=== PATIENT | male | born 2000 | race Caucasian/White ===

== ENCOUNTER 2021-03-15 18:05 | Emergency (ER) | payer OTHER, SELFPAY ==
[2021-02-01 09:39] VITALS: BMI 24.2
[2021-03-15 18:06] VITALS: BP 154/79; PULSE 82; RESP 18; TEMP 37.4; O2SAT 98; BMI 27.1
[2021-03-15 18:35] LABS: Absolute Lymphocyte Count 1.54 X10^3/uL (0.83-4.51); Absolute Neutrophil Count 4.8 X10^3/uL (2.0-7.7); Basophil# 0.05 X10^3/uL; Basophil% 0.7 % (0-1); Eosinophil# 0.05 X10^3/uL; Eosinophils% 0.7 % (0-5); Hemoglobin 15.9 g/dL (13.0-16.5); Lymphocyte # 1.54 X10^3/ul (0.83-4.51); Lymphocyte % 21.2 % (19-41); Mean Corp Hgb Conc 33.1 g/dL (32-36); Mean Corpuscular Hgb 28.6 pg (27.0-32.0); Mean Corpuscular Volume 86.5 fL (80-94); Mean Platelet Vol. 9.3 fl (6.2-12.0); Monocyte# 0.76 X10^3/uL; Monocyte% 10.5 % (0-10); NRBC Flagged by Analyzer 0 % (0-5); Neutrophil # 4.83 X10^3/uL (2.7-7.7); Neutrophil % 66.5 % (47-70); Platelet Count 260 K/mm3 (150-450); RBC Distribution Width CV 13.9 % (11.6-14.6); RBC Distribution Width SD 43.8 fl (35.1-43.9); Red Blood Count 5.55 M/mm3 (4.6-6.2); White Blood Count 7.3 K/mm3 (4.4-11.0)
[2021-03-15 18:53] LABS: Anion Gap 5 (5-15); BUN 9 mg/dL (7-18); BUN/Creat Ratio 8.3 RATIO (10-20); Calcium,Total 9.3 mg/dL (8.5-10.1); Chloride 107 mmol/L (98-107); Creatinine, Serum 1.09 mg/dL (0.70-1.30); EST Glomerular Filtration Rate 92 mL/min (>60); Est Glom Filt Rate - Afr Amer 112 mL/min (>60); Estimated Creatinine Clearance 123.19 ml/min; Glucose 87 mg/dL (74-106); Potassium 3.7 mmol/L (3.5-5.1); Sodium Level 137 mmol/L (136-145)
[2021-03-15 21:35] LABS: Amphetamine Urine VISTA NEGATIVE (<1000 ng/mL); Barbiturate Urine VISTA NEGATIVE (< 200 ng/mL); Benzodiazepine Urine VISTA NEGATIVE (< 200 ng/mL); Cocaine Urine VISTA NEGATIVE (< 300 ng/mL); Ecstacy Urine VISTA NEGATIVE (< 500 ng/mL); Methadone Urine VISTA NEGATIVE (< 300 ng/mL); PCP Urine VISTA NEGATIVE (< 25 ng/mL); THC Urine VISTA POSITIVE (< 50 ng/mL); Vista UDS pH Range 6
--- NOTE | 2021-03-15 21:36 | ED.RN ---
PAGED CRISIS TO SEE THIS PT
[2021-03-15 22:54] VITALS: BP 134/87; PULSE 73; RESP 16; O2SAT 99
--- NOTE | 2021-03-15 23:03 | ED.RN ---
UPDATED PT AND FAMILY ON CURRENT STATUS OF PLACEMENT, BOTH VOICE UNDERSTANDING. FAMILY IS LEAVING TO GET PT CLOTHES AND TACO JARA, WILL RETURN.
[2021-03-16 00:29] VITALS: RESP 14
--- NOTE | 2021-03-16 01:57 | EDS_ITS ---
HPI History of Present Illness Chief Complaint: Suicidal Informant: patient Narrative Narrative: Patient is a 20-year-old previously healthy male who presents to the emergency department for suicidal ideation. He states that the he has had these thoughts before in the past. He has attempted suicide 1 and 2 years ago. He states that he was previously on psychiatric medications but came off of them over the past couple of months. He was just placed on lithium over the past month. He has had thoughts of wanting to hurt himself. He states that he does have razor blades at the house and put them up to his arm. He never actually cut himself. He called crisis who referred him to the emergency department. Patient states he has had a lot of new stressors lately. He did recently move out and got his own apartment. He denies any issues with drugs or alcohol. [facility] Medical History (Updated 03/16/21 @ 06:[address] Kenneth Neely DO) Depression Hypomanic bipolar II disorder Right ankle sprain Right foot sprain Home Medications fluoxetine 20 mg capsule 20 mg PO DAILY 02/01/21 [History Last Taken Unknown] lamotrigine 25 mg PO DAILY 03/15/21 [History Last Taken Unknown] trazodone 50 - 100 mg PO QHS PRN 03/15/21 [History Last Taken Unknown] Allergy/AdvReac Type Severity Reaction Status Date / Time No Known Allergies Allergy Verified 09/02/16 07:34 Family History (Updated 02/01/21 @ 09:15 by Whitney Sung) Other CVA (cerebral vascular accident) Cancer Dementia Diabetes Hypertension Social History Smoking Status: Never smoker ROS ROS ED Constitutional Constitutional ED: Denies chills or fever(s) ENT ENT ED: Denies rhinorrhea Cardiovascular Cardiovascular: Denies chest pain Respiratory/Chest Respiratory/Chest: Denies cough or dyspnea Gastrointestinal Gastrointestinal: Denies abdominal pain, nausea or vomiting Musculoskeletal Musculoskeletal: Denies back pain or neck pain Integumentary Denies rash Neurologic Neurologic: Denies dizziness or weakness Psychiatric Psychiatric: Reports suicidal ideation EXAM Physical Exam Const Vital Signs: 03/15/21 18:06 03/15/21 22:54 03/16/21 00:29 Temperature 99.3 F H Temperature Source Temporal Pulse Rate 82 73 Respiratory Rate 18 16 14 Blood Pressure 154/79 H 134/87 H Blood Pressure Mean 104 102 Pulse Ox 98 99 Oxygen Delivery Method Room Air Room Air 03/16/21 03:00 03/16/21 04:04 03/16/21 05:11 Temperature Temperature Source Pulse Rate 62 Respiratory Rate 14 14 14 Blood Pressure 108/61 Blood Pressure Mean 76 Pulse Ox 98 Oxygen Delivery Method Room Air Positive well nourished and well developed General Appearance ED: well developed and NAD HEENT Reports normocephalic, head/scalp atraumatic and moist mucous membranes Eyes PERRL and EOMs intact bilaterally Neck supple Resp normal respiratory effort and clear to auscultation bilaterally Auscultation: Negative for rales, rhonchi or wheezes Cardio regular rate, regular rhythm and no murmurs Extremity normal to inspection General Extremety ED: Negative for edema General Extremity: Negative for edema Neuro no sensory deficits noted Sensorium / Orientation: alert Motor Exam: strength 5/5 throughout Psych mental status grossly normal Skin no rashes or lesions noted MDM MDM MDM Narrative Medical decision making narrative: Patient presents to the emergency department for suicidal ideation. He has been calm and cooperative throughout emergency department stay. Basic lab work obtained. This did not reveal any significant acute abnormality. His tox screen was positive for cannabinoids. Alcohol level is negative. Patient is medically cleared for psychiatric evaluation. Crisis did evaluate the patient and they are planning on placing him into acute psychiatric care facility. Patient's lithium level is low. Patient was accepted at [facility]. He has remained stable throughout ED stay. We will transfer him at this time. Lab Data Labs: Laboratory Results - last 24 hr 03/15/21 03/15/21 03/15/21 18:25 18:25 18:25 WBC 7.3 RBC 5.55 Hgb 15.9 Hct 48.0 MCV 86.5 MCH 28.6 MCHC 33.1 RDW Std Deviation 43.8 RDW Coeff of Kayode 13.9 Plt Count 260 MPV 9.3 Immature Gran % (Auto) 0.400 Neut % (Auto) 66.5 Lymph % (Auto) 21.2 [place] % (Auto) 10.5 H Eos % (Auto) 0.7 Baso % (Auto) 0.7 Absolute Neuts (auto) 4.8 Absolute Lymphs (auto) 1.54 Nucleated RBC % 0 Sodium 137 Potassium 3.7 Chloride 107 Carbon Dioxide 25.0 Anion Gap 5 BUN 9 Creatinine 1.09 Estim Creat Clear Calc 123.19 Est GFR (MDRD) Af Amer 112 Est GFR (MDRD) Non-Af 92 BUN/Creatinine Ratio 8.3 L Glucose 87 Calcium 9.3 Urine Opiates Screen Urine Methadone Screen Ur Barbiturates Screen Ur Phencyclidine Scrn Ur Amphetamines Screen U Methamphetamin-MDMA U Benzodiazepines Scrn Manuel Garcia Ii Urine Cocaine Screen U Cannabinoids Screen Ur Drug Screen Comment Ethyl Alcohol 4.0 03/15/21 03/15/21 18:25 19:58 WBC RBC Hgb Hct MCV MCH MCHC RDW Std Deviation RDW Coeff of Kayode Plt Count MPV Immature Gran % (Auto) Neut % (Auto) Lymph % (Auto) [place] % (Auto) Eos % (Auto) Baso % (Auto) Absolute Neuts (auto) Absolute Lymphs (auto) Nucleated RBC % Sodium Potassium Chloride Carbon Dioxide Anion Gap BUN Creatinine Estim Creat Clear Calc Est GFR (MDRD) Af Amer Est GFR (MDRD) Non-Af BUN/Creatinine Ratio Glucose Calcium Urine Opiates Screen NEGATIVE Urine Methadone Screen NEGATIVE Ur Barbiturates Screen NEGATIVE Ur Phencyclidine Scrn NEGATIVE Ur Amphetamines Screen NEGATIVE U Methamphetamin-MDMA NEGATIVE U Benzodiazepines Scrn NEGATIVE Manuel Garcia Ii < 0.20 L Urine Cocaine Screen NEGATIVE U Cannabinoids Screen POSITIVE H Ur Drug Screen Comment Ethyl Alcohol Discharge Plan Triage Chief Complaint: Suicidal ED Provider: Kenneth Neely Dx/Rx/DC Orders Clinical Impression: Suicidal ideations Prescriptions: No Action fluoxetine 20 mg capsule 20 mg PO DAILY RF: 0 trazodone 50 mg tablet 50 - 100 mg PO QHS PRN (Reason: Insomnia) RF: 0 lamotrigine 25 mg tablet 25 mg PO DAILY RF: 0 Primary Care Provider: Care Physician,No Primary Referrals: Care Physician,No Primary [Primary Care Provider] - Disposition Disposition: Psychiatric Hospital or Unit
[2021-03-16 02:33] LABS: Lithium < 0.20 mmol/L (0.60-1.20)
[2021-03-16 03:00] VITALS: RESP 14
[2021-03-16 04:04] VITALS: BP 108/61; PULSE 62; RESP 14; O2SAT 98
[2021-03-16 05:11] VITALS: RESP 14
[2021-03-16 06:32] VITALS: RESP 16
--- NOTE | 2021-03-16 06:32 | ED.RN ---
SECOND ATTEMPT TO CALL REPORT TO [facility]. RN ASKED IF THIS RN COULD CALL BACK IN 5 MINUTES.
== END 2021-03-16 06:37 ==
PROVIDERS: Emergency Provider Emergency Medicine
DX: R45.851 Suicidal ideations (principal); F31.81 Bipolar II disorder; F12.90 Cannabis use, unspecified, uncomplicated; Z79.899 Other long term (current) drug therapy
CPT/HCPCS: 80048; 80178; 80307; 82077; 85025; 99285

== ENCOUNTER 2023-08-01 07:25 | Emergency (ER) | payer OTHER, SELFPAY ==
[2023-08-01 07:25] VITALS: BP 127/69; PULSE 59; RESP 16; TEMP 36.3; O2SAT 99; BMI 26.3
--- NOTE | 2023-08-01 07:46 | CT_ITS ---
STUDY: CT ABDOMEN AND PELVIS WITH CONTRAST REASON FOR EXAM: Male, 22 years old. Epigastric pain. RADIATION DOSAGE (If Supplied By Facility): CTDIvol = ( 11.00 ) mGy, DLP = ( 841.46 ) mGycm TECHNIQUE: Transaxial images were obtained from the dome of the diaphragm to the symphysis pubis without oral contrast. IV 100mL Isovue-300 was administered. Sagittal and coronal images were reconstructed. Individualized dose optimization techniques were used for this CT. COMPARISON: None. FINDINGS: The visualized lung bases are unremarkable. The visualized portions of the heart are within normal limits. Normal liver. Normal gallbladder and extrahepatic biliary system. Normal spleen. Normal pancreas. Normal bilateral adrenal glands. Normal right kidney. Normal left kidney. Normal visualized stomach. Normal small intestine. Normal colon. The appendix is visualized and appears normal. Small lymph nodes are seen within the mesentery in the right lower quadrant suggests of mesenteric adenitis. Normal abdominal aorta. Normal inferior vena cava. Normal retroperitoneum. Normal urinary bladder. Normal abdominal wall. Normal osseous structures. CT/Abdomen/Pelvis W IV Cont ONLY IMPRESSION: Normal enhanced CT of the abdomen and pelvis. Electronically Signed: Fortunato Gonzalez MD at 9:06 EST ,
--- NOTE | 2023-08-01 07:47 | EDS_ITS ---
HPI HPI - GI History of Present Illness Chief Complaint: Abd Pain Narrative Narrative: 22-year-old male past medical history of depression presents with his mother because of abdominal pain that began around 830 yesterday morning, almost 23 hours ago. He states throughout the day it progressed. Complains of more left- sided abdominal pain that is crampy and pulsating. He was nauseated but did not vomit. He later developed diarrhea and loose stool. Although he is lactose intolerant and had a small amount of dairy, it was not enough to cause his symptoms. He also complains of a scratchy throat that sore with swallowing. No fevers or chills. No dysuria or hematuria. No exacerbating or alleviating factors to his abdominal pain. However, he did state that bearing down might make it feel better. [facility] Medical History Depression Hypomanic bipolar II disorder Right ankle sprain Right foot sprain Home Medications fluoxetine 20 mg capsule 20 mg PO DAILY 02/01/21 [History Last Taken Unknown] lamotrigine 25 mg tablet 25 mg PO DAILY 03/15/21 [History Last Taken Unknown] trazodone 50 mg tablet 50 - 100 mg PO QHS PRN Insomnia 03/15/21 [History Last Taken Unknown] Allergy/AdvReac Type Severity Reaction Status Date / Time No Known Allergies Allergy Verified 11/04/22 15:37 Family History Other CVA (cerebral vascular accident) Cancer Dementia Diabetes Hypertension Social History Smoking Status: Never smoker ROS ROS ED ROS Narrative Constitutional: No fever, no chills. HEENT: No sore throat. No neck pain. No loss of vision. No rhinorrhea. Itchy, sore throat Cardiovascular: No chest pain. No palpitations. No pedal edema. Respiratory: No cough, no shortness of breath. Abdominal: Upper quadrant abdominal pain. Positive nausea. No vomiting. Positive diarrhea, 3 episodes to 4 episodes in last 24 hours. Genitourinary: No dysuria. No hematuria. Musculoskeletal: No myalgias. No arthralgias. Neurologic: No headaches. No dizziness. No lightheadedness. Skin: No rash. No change in color. Psychiatric: No depression. No anxiety. EXAM Physical Exam Narrative Exam Narrative: Afebrile. Vital signs noted. HEENT: Normocephalic. Atraumatic. PERRL, EOMI. Neck soft and supple. No point tenderness or step off. Weight patent. No drooling or trismus. No tonsillar exudate. Cardiovascular: Regular rate and rhythm. No murmurs, rubs, or gallops appreciated. Respiratory: No tachypnea. Lungs clear to auscultation bilaterally. Gastrointestinal: Abdomen soft, tenderness to palpation left upper quadrant with normoactive bowel sounds. No rebound or guarding. Neurological: Awake. Alert. Nonfocal, nonlateralizing. Skin: No rash. Normal color. No pallor. Musculoskeletal: No pedal edema. Full range of motion extremities. Const Vital Signs: 08/01/23 07:25 Temperature 97.3 F L Temperature Source Temporal Pulse Rate 59 L Respiratory Rate 16 Blood Pressure 127/69 H Blood Pressure Mean 88 Pulse Ox 99 Oxygen Delivery Method Room Air MDM MDM MDM Narrative Medical decision making narrative: Regarding his sore throat, he may have more of a viral URI versus strep. Rapid strep will be obtained. His main concern more this is abdominal pain. He has not really had any past medical history, no past surgical history to his abdomen so I have low suspicion for obstruction. In the differential also is diarrhea from lactose intolerance or viral URI/gastroenteritis. He may have colitis, or new onset Crohn's or ulcerative colitis. Screening labs will be obtained in the form of CBC, CMP, and lipase. I will also obtain a UA and CT imaging with IV contrast. I reviewed his laboratory work and he has a normal white count of 7.7, hemoglobin normal at 15.9, hematocrit 48.6, platelet count normal at 207. Electrolyte panel is grossly unremarkable except for a chloride of 111 which I think is nonspecific, normal BUN of 14 with creatinine normal at 0.79. No evidence of dehydration. Glucose appropriately elevated at 97 with an anion gap low at 4. His LFTs are grossly unremarkable with an AST of 19 and ALT of 21. Lipase normal at 21. Repeat examination at approximately 8:55 AM shows him resting comfortably on the cot, stating that his pain has improved. He has not had an episode of diarrhea here in the emergency department. I reviewed the CT report which shows normal appendix. There may be enlarged lymph nodes consis tent with mesenteric adenitis. There is no evidence of obstruction. At this point in time, I do not feel that UA is mandatory for his continued workup. There is no evidence of kidney stone or obstructive uropathy. He was referred to a primary care provider. I feel he can be discharged to follow-up. Return instructions to the emergency department were reviewed. Patient and mother agreeable to the plan. Disposition is discharged home in stable condition. History & Record Review Discussion w/independent historian: Patient and Family (Mother) Additional record(s) reviewed:: Prior ED visit (NONcontributory to current chief complaint.) Lab Data Attestation: I reviewed the patient's lab results. Labs: Laboratory Results - last 24 hr 08/01/23 05:06 WBC 7.7 RBC 5.50 Hgb 15.9 Hct 48.6 MCV 88.4 MCH 28.9 MCHC 32.7 RDW Std Deviation 43.9 RDW Coeff of Kayode 13.5 Plt Count 207 MPV 9.5 Immature Gran % (Auto) 0.300 Neut % (Auto) 60.8 Lymph % (Auto) 27.8 [place] % (Auto) 7.8 Eos % (Auto) 2.8 Baso % (Auto) 0.5 Absolute Neuts (auto) 4.7 Absolute Lymphs (auto) 2.15 Nucleated RBC % 0 Sodium 137 Potassium 4.7 Chloride 111 H Carbon Dioxide 22.0 Anion Gap 4 L BUN 14 Creatinine 0.79 Estim Creat Clear Calc 167.16 Est GFR (MDRD) Af Amer 158 Est GFR (MDRD) Non-Af 131 BUN/Creatinine Ratio 17.7 Glucose 97 Calcium 8.8 Total Bilirubin 0.30 AST 19 ALT 21 Alkaline Phosphatase 69 Total Protein 7.1 Albumin 3.6 Globulin 3.5 Albumin/Globulin Ratio 1.0 Lipase 21 Radiography Diagnostic Testing: Clinical Impression(s) from Imaging Studies Abdomen/Pelvis CT 08/01/23 07:46 IMPRESSION: Normal enhanced CT of the abdomen and pelvis. Electronically Signed: Fortunato Gonzalez MD at 9:06 EST , Discharge Plan Triage Chief Complaint: Abd Pain ED Provider: Jan Ham Dx/Rx/DC Orders Clinical Impression: Diarrhea, Mesenteric adenitis, Abdominal pain Instructions: ED Diarrhea, Unknown Cause, ED Abdominal Pain Unkn Cause Male..., ED Adenitis, Mesenteric Prescriptions: No Action fluoxetine 20 mg capsule 20 mg PO DAILY Patient Comments: take 1 capsule by mouth once daily trazodone 50 mg tablet 50 - 100 mg PO QHS PRN (Reason: Insomnia) Patient Comments: take 1 to 2 tablets by mouth BEFORE BEDTIME NEEDED FOR SLEEP lamotrigine 25 mg tablet 25 mg PO DAILY Primary Care Provider: Care Physician,No Primary Referrals: Bobby Borrego MD [Med Staff - Active Staff] - As soon as possible Care Physician,No Primary [Primary Care Provider] - Disposition Disposition: Home, Self Care
[2023-08-01 08:23] LABS: Absolute Lymphocyte Count 2.15 X10^3/uL (0.83-4.51); Absolute Neutrophil Count 4.7 X10^3/uL (2.0-7.7); Basophil# 0.04 X10^3/uL; Basophil% 0.5 % (0-1); Eosinophil# 0.22 X10^3/uL; Eosinophils% 2.8 % (0-5); Hematocrit 48.6 % (40-54); Hemoglobin 15.9 g/dL (13.0-16.5); Lymphocyte # 2.15 X10^3/ul (0.83-4.51); Lymphocyte % 27.8 % (19-41); Mean Corp Hgb Conc 32.7 g/dL (32-36); Mean Corpuscular Hgb 28.9 pg (27.0-32.0); Mean Corpuscular Volume 88.4 fL (80-94); Mean Platelet Vol. 9.5 fl (6.2-12.0); Monocyte% 7.8 % (0-10); NRBC Flagged by Analyzer 0 % (0-5); Neutrophil # 4.69 X10^3/uL (2.7-7.7); Neutrophil % 60.8 % (47-70); Platelet Count 207 K/mm3 (150-450); RBC Distribution Width CV 13.5 % (11.6-14.6); RBC Distribution Width SD 43.9 fl (35.1-43.9); White Blood Count 7.7 K/mm3 (4.4-11.0)
[2023-08-01 08:27] LABS: AST(SGOT) 19 U/L (15-37); Alanine Aminotransfer ALT/SGPT 21 U/L (16-61); Albumin, Serum 3.6 g/dL (3.2-5.0); Alkaline Phosphatase 69 U/L (45-117); Anion Gap 4 (5-15); BUN 14 mg/dL (7-18); BUN/Creat Ratio 17.7 RATIO (10-20); Calcium,Total 8.8 mg/dL (8.5-10.1); Chloride 111 mmol/L (98-107); Creatinine, Serum 0.79 mg/dL (0.70-1.30); EST Glomerular Filtration Rate 131 mL/min (>60); Est Glom Filt Rate - Afr Amer 158 mL/min (>60); Estimated Creatinine Clearance 167.16 ml/min; Globulin 3.5 g/dL (2.2-4.2); Glucose 97 mg/dL (74-106); Lipase 21 U/L (13-75); Potassium 4.7 mmol/L (3.5-5.1); Protein, Total 7.1 g/dL (6.4-8.2); Sodium Level 137 mmol/L (136-145)
[2023-08-01] MEDS: Dicyclomine 10 MG Capsule 20 MG PO (08:35)
[2023-08-01] MEDS: 0.9% Normal Saline (1000mL) 1,000 ML 1000 ML IV (08:35)
== END 2023-08-01 09:21 | disposition home or self-care (01) ==
PROVIDERS: Emergency Provider Emergency Medicine; Visit Provider Emergency Medicine
DX: R10.9 Unspecified abdominal pain (principal); F31.81 Bipolar II disorder; E73.9 Lactose intolerance, unspecified; R19.7 Diarrhea, unspecified; I88.0 Nonspecific mesenteric lymphadenitis; Z79.899 Other long term (current) drug therapy
CPT/HCPCS: 74177; 80053; 83690; 85025; 87880; 96360; 99283; Q9967; A4216

== ENCOUNTER 2023-10-27 17:24 | Emergency (ER) | payer OTHER, SELFPAY ==
[2023-10-27 17:25] VITALS: BP 121/76; PULSE 54; RESP 14; TEMP 36.1; O2SAT 99
--- OUTSIDE RECORDS SUMMARY | 2023-10-27 19:51 | XMS RPT_ITS | CCD ---
Author Name Unknown Address [address] [place] [address] [address] [place] [address] Organization [facility] Care Team Providers Care Office Rental Clerk Name Role Phone Leana Vines APRN.CNP Primary Care Provider Medications Completed/Discontinued Medications Medication Drug Class(es) Dates Sig (Normalized) Sig (Original) adapalene 0.001 mg/mg / benzoyl peroxide 0.025 mg/mg topical gel (3 sources) Retinoid Start: 10-19-2018 adapalene-benzoyl peroxide (EPIDUO) 0.1-2.5 % glwp Indications: Acne vulgaris Applied to the face as directed daily at bedtime 1 Bottle 0 10/19/2018 Active Problems Active Problems Problem Classification Problem Date Documented Da te Episodic/Chronic Anxiety disorders (3 sources) Anxiety state; Translations: [Generalized anxiety disorder] Onset: 04-14-2022 04-14-2022 Chronic Mood disorders (6 sources) Moderate major depression, single episode; Translations: [Major depressive disorder, single episode, moderate] Onset: 11-09-2018 11-09-2018 Chronic Past or Other Problems Problem Classification Problem Date Documented Da te Episodic/Chronic Other skin disorders (3 sources) Acne vulgaris; Translations: [Acne vulgaris] Onset: 11-09-2018 11-09-2018 Episodic Results Test Name Value Interpretation Reference Range Facil ity Encounters Encounter Date Encounter Type Care Provider Facility Start: 05-17-2022 Telephone encounter Reza ng MD Work Phone: [facility] Procedures Date Procedure Procedure Detail Performing Clinician Start: 10-02-2018 Adult depression screening assessment Leana Vines APRN.CNP Work Phone: Plan of Treatment Date Care Activity Detail Author Start: 04-17-2024 Urine microalbumin profile DTA P,TDAP,TD (7 - Td or Tdap) [facility] Start: 04-14-2023 COVID-19 VACCINE (3 - Booster for Moderna series) COVID-19 VACCINE (3 - Booster for Moderna series) [facility] Immunizations Immunization Date Immunization Notes Care Provider Lata lopes 05-06-2020 influenza, injectabl e, quadrivalent, contains preservative Leana Jasmyn CONTROL ANALYST.[facility] Work Phone: [facility] 05-06-2020 meningococcal oligosaccharide (groups A, C, Y and W-135) diphtheria toxoid conjugate vaccine (MCV4O) Leana Jasmyn CONTROL ANALYST.FINANCE CLERK Work Phone: [facility] 05-08-2015 Human Papillomavirus 9-valent vaccine Leana Jasmyn CONTROL ANALYST.FINANCE CLERK Work Phone: [facility] 05-08-2015 influenza, injectabl e, quadrivalent, contains preservative Leana Jasmyn CONTROL ANALYST.FINANCE CLERK Work Phone: [facility] 07-15-2014 human papilloma viru s vaccine, quadrivalent Leana Jasmyn CONTROL ANALYST.FINANCE CLERK Work Phone: [facility] 04-17-2014 human papilloma viru s vaccine, quadrivalent Leana Jasmyn CONTROL ANALYST.FINANCE CLERK Work Phone: [facility] 04-17-2014 meningococcal polysaccharide (groups A, C, Y and W-135) diphtheria toxoid conjugate vaccine (MCV4P) Leana Jasmyn CONTROL ANALYST.FINANCE CLERK Work Phone: [facility] 04-17-2014 tetanus toxoid, redu sanam diphtheria toxoid, and acellular pertussis vaccine, adsorbed Leana Jasmyn CONTROL ANALYST.FINANCE CLERK Work Phone: [facility] 12-21-2006 diphtheria, tetanus toxoids and acellular pertussis vaccine Leana Jasmyn CONTROL ANALYST.FINANCE CLERK Work Phone: [facility] Work Phone: 12-21-2006 measles, mumps, rube lla, and varicella virus vaccine Leana Jasmyn CONTROL ANALYST.FINANCE CLERK Work Phone: [facility] Work Phone: 12-21-2006 poliovirus vaccine, inactivated Leana Jasmyn CONTROL ANALYST.[facility] Work Phone: [facility] Work Phone: 06-27-2003 diphtheria, tetanus toxoids and acellular pertussis vaccine Leana Jasmyn CONTROL ANALYST.[facility] Work Phone: [facility] Work Phone: 06-27-2003 haemophilus influenz ae type b vaccine, HbOC conjugate Leana Jasmyn CONTROL ANALYST.[facility] Work Phone: [facility] Work Phone: 06-27-2003 varicella virus vaccine Cherelle billy Jasmyn CONTROL ANALYST.[facility] Work Phone: [facility] Work Phone: 11-25-2002 measles, mumps and rubella virus vaccine Leana Jasmyn CONTROL ANALYST.[facility] Work Phone: [facility] Work Phone: 11-25-2002 pneumococcal conjuga te vaccine, 7 valent Leana Jasmyn CONTROL ANALYST.[facility] Work Phone: [facility] Work Phone: 09-05-2002 hepatitis B vaccine, pediatric or pediatric/adolescent dosage Leana Jasmyn CONTROL ANALYST.[facility] Work Phone: [facility] Work Phone: 09-05-2002 pneumococcal conjuga te vaccine, 7 valent Leana Jasmyn CONTROL ANALYST.[facility] Work Phone: [facility] Work Phone: 05-24-2002 diphtheria, tetanus toxoids and acellular pertussis vaccine Leana Jasmyn CONTROL ANALYST.[facility] Work Phone: [facility] Work Phone: 05-24-2002 haemophilus influenz ae type b vaccine, HbOC conjugate Leana Jasmyn CONTROL ANALYST.FINANCE CLERK Work Phone: [facility] Work Phone: 05-24-2002 pneumococcal conjuga te vaccine, 7 valent Leana Jasmyn CONTROL ANALYST.[facility] Work Phone: [facility] Work Phone: 05-24-2002 poliovirus vaccine, inactivated Leana Jasmyn CONTROL ANALYST.[facility] Work Phone: [facility] Work Phone: 03-26-2002 diphtheria, tetanus toxoids and acellular pertussis vaccine Leana Jasmyn CONTROL ANALYST.[facility] Work Phone: [facility] Work Phone: 03-26-2002 haemophilus influenz ae type b vaccine, HbOC conjugate Leana Jasmyn CONTROL ANALYST.[facility] Work Phone: [facility] Work Phone: 03-26-2002 poliovirus vaccine, inactivated Leana Jasmyn CONTROL ANALYST.[facility] Work Phone: [facility] Work Phone: 01-22-2002 diphtheria, tetanus toxoids and acellular pertussis vaccine Leana Jasmyn CONTROL ANALYST.[facility] Work Phone: [facility] Work Phone: 01-22-2002 haemophilus influenz ae type b vaccine, HbOC conjugate Leana Jasmyn CONTROL ANALYST.[facility] Work Phone: [facility] Work Phone: 01-22-2002 pneumococcal conjuga te vaccine, 7 valent Leana Jasmyn CONTROL ANALYST.[facility] Work Phone: [facility] Work Phone: 01-22-2002 poliovirus vaccine, inactivated Leana Jasmyn CONTROL ANALYST.[facility] Work Phone: [facility] Work Phone: 2001 hepatitis B vaccine, pediatric or pediatric/adolescent dosage Leana Jasmyn CONTROL ANALYST.[facility] Work Phone: [facility] Work Phone: 2001 hepatitis B vaccine, pediatric or pediatric/adolescent dosage Leana Vines APRN.[facility] Work Phone: [facility] Work Phone: Payers Date Payer Category Payer Unknown [facility] CE PLAN [place] [employer] [id number] 2021-Present [address] [place] [address] PPO [id number] Social History Date Type Detail Facility Start: 04-14-2022 Tobacco smoking stat [facility] Smokes tobacco daily [facility] Start: 04-14-2022 Tobacco use and exposure Smoke less tobacco non-user [facility] Start: 04-14-2022 Alcohol intake Not Asked [facility] Start: 04-14-[address] [facility] Start: [facility] Sex Assigned At Not on file [facility] Start: 04-03-2022 End: 04-13-2022 Exposure to SARS-CoV-2 (event) Yes [facility] Note 05-18-2022 Telephone Encounter - Diane Wilson RN - 05/18/2022 4:03 PM EDTTelephone Encounter - Karma Durand Ma - 05/17/2022 4:33 PM EDTTelephone Encounter - Karma Durand Ma - 05/17/2022 1:22 PM EDT Note Date & Type Note Facility 05-18-2022 Miscellaneous Notes Formattin g of this note might be different from the original. Patient did not return call and did not show for appt scheduled for today Diane Wilson RN Message left to call the office Karma Durand Ma Attempted to contact patient again to call the office. Will try one more time later. Karma Durand Ma Message left to call the office. Patient has an appointment tomorrow (05/18) with Dr. Mcclure. Patient has not seen Dr. Mcclure in 3 years and has previously seen a new provider at the beginning of April. This appointment is for a follow up for medication and patient needs to see his new provider for this follow up and any further appointments. Karma Durand Ma documented in this encounter [facility] Note 04-21-2022 Telephone Encounter - Oralia Painter MA - 04/21/2022 4:22 PM EDTTelephone Encounter - Oralia Painter MA - 04/21/2022 4:21 PM EDT Note Date & Type Note Facility 04-21-2022 Miscellaneous Notes Formattin g of this note might be different from the original. Called pt left VM with results Merle Estevezally signed by Oralia Painter MA at 04/21/2022 4:24 PM EDT ----- Message from Leana Vines APRN.FINANCE CLERK sent at 04/18/2022 9:25 PM EDT ----- Hep C and HIV negative documented in this encounter [facility] Note 04-14-2022 Telephone Encounter - Oralia Painter MA - 04/14/2022 4:54 PM EDTTelephone Encounter - Oralia Painter MA - 04/14/2022 4:53 PM EDT Note Date & Type Note Facility 04-14-2022 Miscellaneous Notes Formattin g of this note might be different from the original. Called pt left MV with results and for him to call the office back with questions Oralia Painter MA ----- Message from Leana Vines APRN.FINANCE CLERK sent at 04/14/2022 2:19 PM EDT ----- CMP, CBC, tsh, and lipids are all good. documented in this encounter [facility] Progress note 04-14-2022 Note Date & Type Note Facility 04-14-2022 Note HNO ID: [id number] Author: Leana Vines APRN.FINANCE CLERK Service: ? Author Type: Nurse Practitioner Type: Progress Notes Filed: 04/14/2022 12:09 PM Note Text: This note was created using [employer]. Subjective Antwon Ernst is a 21 year old male here today to establish care for acute concerns for depression and anxiety. Previous PCP DR Mcclure who was his peditrician. I reviewed her past medical, surgical, social, and family histories today and updated chart. Allergies, chronic medications, and supplements were also reviewed and her list is now up to date. Anxiety and depression: reports being dx at age 18. Reports he was medicated and was on lexapro, zoloft and prozac. He reports one medication made it worse and one made him feel sick. He reports he did best on prozac. States he felt better and he never followed up with doctor so he just stopped. Reports he has been off for less than a year. Reports also being on Lamictal in the past but had bad reaction that caused him to be hospitalized. Occasional thoughts of suicide. Denies plan. Reports he will just break down crying or will smoke marijuana to help his depression and panic attacks. Reports hx of attempted suicide. Reports 3, reports he just tried hurting himself, once with pills and a second time he was going to shoot him self but people came home and stopped him from doing it. Reports attempts of suicide were prior to 18 yo and before he came out as aly. Reports he just broke up with is SO this week. Reports they are just friends and he is still supportive of him. Reports panic attacks 3-4x/wk. Reports usually occur while at work or when driving on his way home. Denies having a good support system. Reports he hates talking to his family about his problems. Reports he has an appt next month at [facility] on may 11. Reports his mom made him make appt. Reports his father committed suicide when he was 9 yo. Reports he has been counseling since then. Reports he is going on a cruise on 04/20/22. Reports he had COVID a week and a half ago. Reports he needs released to be able to go on cruise. Reports symptoms started 03/28/22 and tested positive 03/29/22. Preventative: he smokes marijuana daily to every other day. He reports occasional alcholol. He reports vaping daily. He does not exercise but has active job. ALLERGIES No Known Allergies Current Outpatient Medications Medication Sig Dispense Refill escitalopram oxalate (LEXAPRO) 20 mg tablet Take 1 tablet by mouth once daily. 30 tablet 11 adapalene-benzoyl peroxide (EPIDUO) 0.1-2.5 % glwp Applied to the face as directed daily at bedtime 1 Bottle 0 No current facility-administered medications for this visit. ACTIVE PROBLEM LIST Moderate Major Depression, Single Episode (Hcc) Acne Vulgaris PAST MEDICAL HISTORY Diagnosis Date Anxiety state Depression NEGATIVE MEDICAL HISTORY 12/28/2007 Normal color vision PAST SURGICAL HISTORY Procedure Laterality Date CIRCUMCISION CARE @ Social History Tobacco Use Smoking status: Every Day Smokeless tobacco: Never Tobacco comments: vapes Family History Problem Relation Age of Onset Accidental Father Diabetes Maternal Grandfather Hypertension Maternal Grandfather Diabetes Other PATERNAL SIDE other (HEART DISEASE) Other PATERNAL SIDE Cancer Other MGGM Feeling nervous, anxious, or on edge 3 Nearly every day Not being able to stop or control worrying 2 Over half the days Worrying too much about different things 3 Nearly every day Trouble relaxing 3 Nearly every day Being so restless that it's hard to sit still 2 Over half the days Being easily annoyed or irritable 2 Over half the days Feeling afraid as if something awful might happen 3 Nearly every day KYLIE-7 Anxiety Score 18 If you checked off any problems, how difficult have these problems made it for you to do your work, take care of things at home, or get along with other people? Very difficult THE LAST 2 WEEKS, HAVE YOU BEEN BOTHERED BY ANY OF THE FOLLOWING? - Little interest or pleasure in doing things 2 MORE THAN HALF THE DAYS Feeling down, depressed, or hopeless 3 Trouble falling or staying asleep, or sleeping too much 3 Feeling tired or having little energy 3 Poor appetite or overeating 2 Feeling bad yourself-you are a failure or have let yourself or others 3 Trouble concentrating, like reading the paper or watching TV 2 Moving/speaking slowly (others notice) OR being more fidgety/restless 2 Thoughts that you would be better off or of hurting yourself 3 PHQ TOTAL SCORE = 23 PHQ problems effect on difficulty of work, home, and social activity: 3 - VERY DIFFICULT . Review of Systems Constitutional: Negative for activity change, appetite change, chills, fatigue, fever and unexpected weight change. HENT: Negative for congestion. Respiratory: Negative for cough, shortness of breath and w (more content not included)... [facility] Summary Purpose Family History No Family History Records FoundNo Family History Records FoundNo Family History Records Found Advance Directives No Advanced Directives Records FoundNo Advanced Directives Records FoundNo Advanced Directives Records Found Additional Source Comments (unrecognized sect ion and content) No Status Records FoundNo Status Records FoundNo Status Records Found INFORMATION SOURCE (unrecogn ized section and content) DATE CREATED AUTHOR AUTHOR'S ORGANIZ ATION 04/22/2022 [facility] DATE CREATED AUTHOR AUTHOR'S ORGANIZ ATION 05/19/2022 [facility] Source Comments (unrecognize d section and content) In the event this informatio n is protected by the Federal Confidentiality of Alcohol and Drug Abuse Patient Records regulations: The Federal rules restrict any use of the information to criminally investigate or prosecute any alcohol or drug abuse patient.[facility] the event this information is protected by the Federal Confidentiality of Alcohol and Drug Abuse Patient Records regulations: The Federal rules restrict any use of the information to criminally investigate or prosecute any alcohol or drug abuse patient.[facility] the event this information is protected by the Federal Confidentiality of Alcohol and Drug Abuse Patient Records regulations: The Federal rules restrict any use of the information to criminally investigate or prosecute any alcohol or drug abuse patient.[facility] Reason for Visit (unrecogniz ed section and content) Reason Comments Appointment Care Teams (unrecognized sec tion and content) Office Rental Clerk Relationship Specialty Start Date End Date Lenaa Vines, CONTROL ANALYST.FINANCE CLERK [address] [place] [address] PCP - General Internal Medicine 04/14/22 FOR RECORDS PERTAINING TO PATIENTS WHO ARE OR HAVE BEEN ENROLLED IN A CHEMICAL DEPENDENCY/SUBSTANCEABUSE PROGRAM, SOME INFORMATION MAY BE OMITTED. This clinical summary was aggregated from multiple sources. Caution should be exercised in using it in the provision of clinical care. This summary normalizes information from multiple sources, and as a consequence, information in this document may materially change the coding, format and clinical context of patient data. In addition, data may be omitted in some cases. CLINICAL DECISIONS SHOULD BE BASED ON THE PRIMARY CLINICAL RECORDS. [facility]. provides no warranty or guarantee of the accuracy or completeness of information in this document.
== END 2023-10-27 18:30 | disposition left against medical advice (07) ==
LOC: ED 19:16
DX: R10.9 Unspecified abdominal pain (principal)
CPT/HCPCS: 99282

== ENCOUNTER 2024-10-14 04:48 | Emergency (ER) | payer OTHER, SELFPAY ==
[2024-10-14 04:49] VITALS: BP 146/95; PULSE 62; RESP 18; TEMP 36.6; O2SAT 100; BMI 21.7
--- NOTE | 2024-10-14 06:00 | EDS_ITS ---
HPI History of Present Illness Chief Complaint: Dental Informant: patient Narrative Narrative: Left upper dental pain last couple days. No hot cold sensitivities. No fevers. He states walking the COVID we had clenching of his teeth when pain started. Went away but came back. He went to express care earlier today was told use ibuprofen he took it labeled sleep woke up pain again took ibuprofen no relief. He follows [facility]. History of wisdom tooth extraction along with first molar extractions due to impaction from wisdom tooth. PFSH PFS Medical History Depression Hypomanic bipolar II disorder Right foot sprain Right ankle sprain Home Medications ?Medication ?Instructions ?Recorded ?Last Taken ?Type fluoxetine 20 mg capsule 20 mg PO DAILY 02/01/21 Unkn own History lamotrigine 25 mg tablet 25 mg PO DAILY 03/15/21 Unkn own History trazodone 50 mg tablet 50 - 100 mg PO QHS PRN Insom santiago 03/15/21 Unknown History tramadol 50 mg tablet 50 mg PO Q6H PRN pain #12 ta bs 10/14/24 Unknown Rx Allergy/AdvReac Type Severity Reaction Status Date / Time No Known Allergies Allergy Verified 10/14/24 04:49 Family History Other CVA (cerebral vascular accident) Cancer Dementia Diabetes Hypertension Social History Smoking Status: Never smoker ROS ROS ED Constitutional Constitutional ED: Denies chills, fever(s) or sweats ENT ENT ED: Reports other Details: Dental pain. ; Denies sore throat Cardiovascular Cardiovascular: Denies chest pain Respiratory/Chest Respiratory/Chest: Denies cough Gastrointestinal Gastrointestinal: Denies abdominal pain, nausea or vomiting Neurologic Neurologic: Denies headache(s) EXAM Physical Exam Const Vital Signs: 10/14/24 04:49 Temperature 97.8 F Temperature Source Oral Pulse Rate 62 Respiratory Rate 18 Blood Pressure 146/95 H Blood Pressure Mean 112 Pulse Ox 100 Oxygen Delivery Method Room Air Positive well nourished and well developed General Appearance ED: well developed and NAD HEENT Reports moist mucous membranes HEENT Narrative: Missing first molars and wisdom teeth. No dental cavities seen. Unable to reduce pain with percussion of tooth upper left side. Airway patent. No sublingual edema. No trismus. No pain TMJ region. normocephalic and atraumatic Eyes General Eye ED: Yes normal appearance of both eyes Neck full ROM Chest Wall Chest: Negative for tenderness Resp normal respiratory effort and normal air movement Effort and Inspection: symmetric chest movement; Negative for respiratory distress Cardio regular rate, regular rhythm and no murmurs Peripheral Pulses: pulses 2+ throughout GI normal to inspection, nondistended, normoactive bowel sounds and non-tender Palpation: Negative for guarding or rebound tenderness present Extremity normal to inspection General Extremety ED: Negative for edema or tenderness General Extremity: Negative for edema Neuro oriented x3 and no sensory deficits noted Sensorium / Orientation: awake and alert Skin no rashes or lesions noted and no wounds MDM MDM MDM Narrative Medical decision making narrative: Interventions / MDM: Differential diagnosis: Dentalgia Diagnosis considered but do not suspect: No signs of dental infection. No clinical TMJ pain. My EKG interpretation: N/A Imaging independently reviewed and interpreted by myself: N/A External documents reviewed: N/A Test considered but not ordered:N/A ED course: Patient increasing pain, OARRS report negative. He does have a dentist. Given tramadol in the ED with a short prescription. He will call his dentist today for follow-up. All questions were answered. Re-evaluation: stable Disposition discussed with patient/family/significant other: Patient Case discussed with consulting clinician: N/A This note was generated with [employer] dictation software. It may contain incorrect words, spelling, and punctuation that were not noted in checking the note before signing. Discharge Plan Triage Chief Complaint: Dental ED Provider: Tc Vidales Dx/Rx/DC Orders Clinical Impression: Pain, dental Instructions: ED Dental Pain Prescriptions: New tramadol 50 mg tablet 50 mg PO Q6H PRN (Reason: pain) Qty: 12 0RF No Action fluoxetine 20 mg capsule 20 mg PO DAILY Patient Comments: take 1 capsule by mouth once daily trazodone 50 mg tablet 50 - 100 mg PO QHS PRN (Reason: Insomnia) Patient Comments: take 1 to 2 tablets by mouth BEFORE BEDTIME NEEDED FOR SLEEP lamotrigine 25 mg tablet 25 mg PO DAILY Primary Care Provider: Leana Vines NP Referrals: Leana Vines NP, PATTERN PAINTER-C [Primary Care Provider] - Activity Restrictions/Additional Instructions: No signs of infection. Continue ibuprofen up to 600 mg every 6 hours. Use tramadol as needed. Call your dentist today for follow-up. Print Language: Vietnamese Disposition Disposition: Home, Self Care
[2024-10-14] MEDS: traMADol 50 MG Tablet PO (06:01)
== END 2024-10-14 06:04 | disposition home or self-care (01) ==
PROVIDERS: Emergency Provider Emergency Medicine; PCP Nurse Practitioner Adult Health; Visit Provider Emergency Medicine
DX: K08.89 Other specified disorders of teeth and supporting structures (principal); F32.A Depression, unspecified; Z79.899 Other long term (current) drug therapy
CPT/HCPCS: 99282

== ENCOUNTER → 2025-02-04 | Outpatient (CLI) | payer OTHER, SELFPAY ==
[2025-02-04 11:17] LABS: Hematocrit 41.5 % (40-54); Hemoglobin 14.1 g/dL (13.0-16.5); Mean Corpuscular Hgb 30.6 pg (27.0-32.0); Mean Platelet Vol. 9.5 fl (6.2-12.0); Platelet Count 181 K/mm3 (150-450); RBC Distribution Width CV 12.8 % (11.6-14.6); RBC Distribution Width SD 42.5 fl (35.1-43.9); Red Blood Count 4.61 M/mm3 (4.6-6.2); White Blood Count 6.3 K/mm3 (4.4-11.0)
[2025-02-04 12:13] LABS: Cholesterol 131 mg/dL (<=190); High Density Lipoprotein 51 mg/dL; Low Density Lipoprotein Calc. 69 mg/dL; Triglycerides 58 mg/dL; Very Low Density Lipoprotein 12 mg/dL (5-40); cholesterol:hdl ratio screen 2.59
[2025-02-04 12:22] LABS: ALB/GLOB Ratio 1.7 RATIO (0.9-2.4); AST(SGOT) 23 U/L (<=37); Alanine Aminotransfer ALT/SGPT 23 U/L (<=46); Albumin, Serum 4.5 g/dL (3.5-5.0); Alkaline Phosphatase 81 U/L (40-129); Anion Gap 10 (5-15); BUN 16 mg/dL (4-19); BUN/Creat Ratio 17.2 RATIO (10-20); Calcium,Total 9.2 mg/dL (7.6-11.0); Carbon Dioxide 24.3 mmol/L (21.0-32.0); Chloride 105 mmol/L (98-108); Creatinine, Serum 0.94 mg/dL (0.70-1.20); EST Glomerular Filtration Rate 117 (>60); Globulin 2.6 g/dL (2.2-4.2); Glucose 91 mg/dL (70-99); Potassium 5.1 mmol/L (3.3-5.1); Protein, Total 7.1 g/dL (5.9-8.4); Sodium Level 139 mmol/L (133-145); Total Bilirubin 0.28 mg/dL (0.00-1.30)
== END | disposition home or self-care (01) ==
PROVIDERS: PCP Nurse Practitioner Adult Health; Referring Provider Nurse Practitioner Adult Health; Visit Provider Nurse Practitioner Adult Health
DX: Z13.0 Encounter for screening for diseases of the blood and blood-forming organs and certain disorders involving the immune mechanism (principal); Z13.1 Encounter for screening for diabetes mellitus; Z13.29 Encounter for screening for other suspected endocrine disorder
CPT/HCPCS: 36415; 80053; 80061; 84443; 85027